=== PATIENT | male | born 1960 | race Two or more races ===

== ENCOUNTER 2016-06-30 19:38 | Emergency (ER) | payer OTHER ==
[~2016-06-30] VITALS: Ht 177.8 cm; Wt 74.8 kg
--- NOTE | 2016-06-30 19:51 | NUR ---
PT AMBUALOTRY TO ER BED 8 PT C/O ABD PAIN X2 HOURS/VOMITING. PT AOX4 RR EVEN AND UNLABORED. NO SOB NOTED. NAD NOTED. NO NVD AT THIS TIME. PT GOWNED. WAITING FOR MD ROWLAND.
[2016-06-30] MEDS ORDERED: IV NS 0.9% 1,000 ML BAG IV ONE (20:00)
[2016-06-30] MEDS ORDERED: ONDANSETRON HCL/PF - ER 4 MG/2 ML VIAL IV ONE (20:00)
[2016-06-30] MEDS ORDERED: MORPHINE SULFATE INJ 2 MG/ML DISP.SYRIN IV ONE (20:00)
--- NOTE | 2016-06-30 20:04 | NUR ---
PT NEEDS MEDS FOR PAIN BEFORE CT SCAN, RN WILL CALL.
--- NOTE | 2016-06-30 20:04 | NUR ---
URINE COLLECTED. SENT TO LAB.
[2016-06-30] MEDS ORDERED: ONDANSETRON HCL/PF 4 MG/2 ML VIAL ONE (20:07)
[2016-06-30] MEDS ORDERED: MORPHINE SULFATE INJ 4 MG/ML DISP.SYRIN ONE (20:07)
[2016-06-30 20:11] LABS: BASOPHILS # (AUTO) 0.2 /CMM (0.0-0.2); BASOPHILS % (AUTO) 2.7 % (0.0-2.0); EOSINOPHILS # (AUTO) 0.1 /CMM (0.0-0.7); EOSINOPHILS % (AUTO) 0.9 % (0.0-6.0); HEMATOCRIT 49 % (39-51); HEMOGLOBIN 16.8 g/dL (13.5-17.5); LYMPHOCYTES # (AUTO) 2.4 /CMM (0.8-4.8); LYMPHOCYTES % (AUTO) 31.8 % (20.0-44.0); MEAN CORPUSCULAR HEMOGLOBIN 31 PG (26.0-33.0); MEAN CORPUSCULAR HGB CONC 34 g/dl (31.0-36.0); MEAN CORPUSCULAR VOLUME 91 fL (80-96); MONOCYTES # (AUTO) 0.6 /CMM (0.1-1.30); MONOCYTES % (AUTO) 7.2 % (2.0-12.0); NEUTROPHILS # (AUTO) 4.4 /CMM (1.8-8.9); NEUTROPHILS % (AUTO) 57.4 % (43.0-81.0); PLATELET COUNT (AUTO) 158 /CMM (150-450); RDW COEFFICIENT OF VARIATION 12.6 (11.5-15.0); RED BLOOD CELL COUNT(AUTO) 5.36 MIL/uL (4.5-6.0); WHITE BLOOD COUNT (AUTO) 7.7 K/uL (4.3-11.0)
[2016-06-30 20:24] LABS: APPEARANCE,URINE Clear (CLEAR); BILIRUBIN,URINE Negative (NEGATIVE); BLOOD, URINE Trace-intact Ery/uL (NEGATIVE); COLOR,URINE Yellow (YELLOW); KETONES,URINE Negative (NEGATIVE); LEUKOCYTE ESTERASE ,URINE Negative (NEGATIVE); NITRITE, URINE Negative (NEGATIVE); PH,URINE 8.5 (5.0-8.0); PROTEIN,URINE Negative (NEGATIVE); UGLUCOSE Negative (NEGATIVE); UROBILINOGEN,URINE 0.2 EU/dL (0.2)
--- NOTE | 2016-06-30 20:25 | NUR ---
PT TO CT.
[2016-06-30 20:29] LABS: ALBUMIN 4.3 g/dL (3.4-5.0); BILIRUBIN,DIRECT 0.1 mg/dL (0.0-0.2); BILIRUBIN,TOTAL 0.5 mg/dL (0.2-1.0); CALCIUM, SERUM 9.8 mg/dL (8.5-10.1); CREATININE 1.8 mg/dL (0.6-1.3); POTASSIUM 3.6 mmol/L (3.5-5.1); TOTAL PROTEIN, SERUM 7.6 g/dL (6.4-8.2)
[2016-06-30] MEDS ORDERED: IV SET PRIMARY 1 EA INFUS.SET MC ONE (20:34)
[2016-06-30] MEDS ORDERED: IV NS 0.9% 1,000 ML ONE (20:34)
[2016-06-30 20:40] LABS: WBC,URINE 0-2 /HPF (0-3)
[2016-06-30 20:41] LABS: ADD URINE CULTURE NO; BACTERIA,URINE Rare /HPF (None Seen); SQUAMOUS EPITHELIAL CELL,UR Rare /HPF (None Seen); URINE AMORPHOUS URATE Few /HPF (None Seen)
--- NOTE | 2016-06-30 21:17 | NUR ---
CALLED RADIOLOGIST AND HE CAN NOT SEE IMAGES. CALLED RADIOLOGY DEPT AND THEY ARE PUTTING THE IMAGES THROUGH AGAIN. DR. INIGUEZ IS AWARE
--- NOTE | 2016-06-30 21:59 | NUR ---
IV removed. Catheter intact and site benign. Pressure and 4x4 applied to site. No bleeding noted. Patient discharged to home in stable condition. Written and verbal after care instructions given. Patient verbalizes understanding of instruction. ambulatory with a steady gait. instructed not to drive. pt verbalize understanding.
[2016-06-30 22:03] VITALS: BP 127/83
== END 2016-06-30 22:03 | disposition home or self-care (01) ==
LOC: ER 19:43
DX: N23 Unspecified renal colic (principal); I25.10 Atherosclerotic heart disease of native coronary artery without angina pectoris; I25.2 Old myocardial infarction
CPT/HCPCS: 36415; 80048-TC; 80076-TC; 81000-TC; 83690-TC; 85025-TC; A4606; J2270; J2405; J7030; Z7610

== ENCOUNTER 2016-07-01 14:17 | Emergency (ER) | payer OTHER ==
[~2016-07-01] VITALS: Ht 185.4 cm; Wt 90.7 kg
--- NOTE | 2016-07-01 14:40 | NUR ---
PT CAME IN FOR ABD PAIN, WAS DC LAST NIGHT FOR KIDNEY STONES, TOOK PAIN MEDS AT HOME WITH NO RELIEF. AT BS FOR EVAL. VSS. WILL MONITOR.
[2016-07-01] MEDS ORDERED: MORPHINE SULFATE INJ 4 MG/ML DISP.SYRIN ONE ×2 (14:41→15:07)
[2016-07-01] MEDS ORDERED: ONDANSETRON HCL/PF 4 MG/2 ML VIAL ONE (14:42)
--- NOTE | 2016-07-01 14:52 | NUR ---
IV ACCESS STARTED. PT MEDICATED ORDERED.
[2016-07-01] MEDS ORDERED: ONDANSETRON HCL/PF 4 MG/2 ML VIAL IVP ONE (15:00)
[2016-07-01] MEDS ORDERED: MORPHINE SULFATE INJ 2 MG/ML DISP.SYRIN IV ONE ×2 (15:00→15:30)
--- NOTE | 2016-07-01 16:12 | NUR ---
Patient is resting comfortably in bed with eyes closed. Easily aroused. VSS
[2016-07-01] MEDS ORDERED: HYDROCODONE/APAP 5/325MG 1 EACH TABLET ONE (16:40)
[2016-07-01] MEDS ORDERED: IV LR 1000 ML 1,000 ML IV ONE (17:00)
[2016-07-01] MEDS ORDERED: HYDROCODONE/APAP 5/325MG 1 EACH TABLET PO ONE (17:00)
[2016-07-01] MEDS ORDERED: IV NS 0.9% 500 ML IV ONE (17:09)
[2016-07-01] MEDS ORDERED: KETOROLAC TROMETHAMINE INJ 30 MG/ML VIAL ONE (17:09)
[2016-07-01] MEDS ORDERED: IV SET PRIMARY 1 EA INFUS.SET MC ONE (17:09)
--- NOTE | 2016-07-01 17:10 | NUR ---
JOB SETTER AT FOR BLOOD DRAW.
--- NOTE | 2016-07-01 17:19 | NUR ---
PT STILL COMPLAINING OF PAIN 12/23. AWARE. NEW ORDERS CARRIED OUT.
[2016-07-01 17:20] LABS: BASOPHILS # (AUTO) 0.1 /CMM (0.0-0.2); BASOPHILS % (AUTO) 0.6 % (0.0-2.0); EOSINOPHILS % (AUTO) 0.1 % (0.0-6.0); HEMATOCRIT 47 % (39-51); HEMOGLOBIN 15.6 g/dL (13.5-17.5); LYMPHOCYTES # (AUTO) 1.9 /CMM (0.8-4.8); LYMPHOCYTES % (AUTO) 15.8 % (20.0-44.0); MEAN CORPUSCULAR HEMOGLOBIN 30 PG (26.0-33.0); MEAN CORPUSCULAR HGB CONC 33 g/dl (31.0-36.0); MEAN CORPUSCULAR VOLUME 91 fL (80-96); MONOCYTES # (AUTO) 0.7 /CMM (0.1-1.30); MONOCYTES % (AUTO) 5.7 % (2.0-12.0); NEUTROPHILS # (AUTO) 9.2 /CMM (1.8-8.9); NEUTROPHILS % (AUTO) 77.8 % (43.0-81.0); PLATELET COUNT (AUTO) 156 /CMM (150-450); RDW COEFFICIENT OF VARIATION 13.4 (11.5-15.0); RED BLOOD CELL COUNT(AUTO) 5.13 MIL/uL (4.5-6.0); WHITE BLOOD COUNT (AUTO) 11.8 K/uL (4.3-11.0)
--- NOTE | 2016-07-01 17:20 | NUR ---
PT TAKEN TO CT
[2016-07-01] MEDS ORDERED: IV NS 0.9% 500 ML BAG IV ONE (17:30)
[2016-07-01] MEDS ORDERED: KETOROLAC TROMETHAMINE INJ 30 MG/ML VIAL IV ONE (17:30)
[2016-07-01 17:31] LABS: CALCIUM, SERUM 8.7 mg/dL (8.5-10.1); CREATININE 1.5 mg/dL (0.6-1.3); POTASSIUM 3.4 mmol/L (3.5-5.1)
--- NOTE | 2016-07-01 18:14 | NUR ---
PAGED (RADIOLOGIST THAT READ CT)
[2016-07-01 18:34] VITALS: BP 141/84
--- NOTE | 2016-07-01 18:34 | NUR ---
IV removed. Catheter intact and site benign. Pressure and 4x4 applied to site. No bleeding noted.Patient discharged to home in stable condition. Written and verbal after care instructions given. Patient verbalizes understanding of instruction. Pt ambulatory with a steady gait.
== END 2016-07-01 18:36 | disposition home or self-care (01) ==
LOC: ER 14:19
DX: N23 Unspecified renal colic (principal); I25.10 Atherosclerotic heart disease of native coronary artery without angina pectoris; I25.2 Old myocardial infarction
CPT/HCPCS: 36415; 80048-TC; 85025-TC; A4606; J1885; J2270; J2405; J7040; Z7610